=== PATIENT | male | born 1965 | race Caucasian/White ===

== ENCOUNTER 2017-10-12 21:01 | Emergency (ER) | payer MEDICARE, OTHER ==
[2017-10-12 21:07] VITALS: RESP 18
--- NOTE | 2017-10-12 21:40 | ED ---
Anxiety HPI - General Chief Complaint: Anxiety Stated Complaint: psych eval Time Seen by Provider: 10/12/17 21:20 Source: patient, RN notes reviewed Mode of arrival: ambulatory - History of Present Illness Initial Comments: This is a 52-year-old male who presents to the emergency department with request for mental evaluation. Patient states that he is prescribed Klonopin by Dr. Burleson. He states that he has been out since October 04 and does not follow up with Dr. Burleson until October 19 He states that "things are coming at me too fast. " He states he is experiencing a lot of stress in his life and needs something for anxiety. He requests to have a mental health evaluation. Patient denies any recent illnesses or infections. Denies fevers or chills, chest pain or shortness of breath, abdominal pain, nausea or vomiting. He does state that he is a current, every day smoker. Denies alcohol or illicit drug use. Denies auditory or visual hallucinations. - Related Data Home Medications: Home Medications Medication Instructions Recorded Confirmed OLANZapine [ZyPREXA] 15 mg PO DAILY 10/28/15 10/12/17 Butalb/Asprin/Caff 50-325-40Mg 1 cap PO DAILY PRN 10/12/17 10/12/17 [Fiorinal 50-325-40 MG] Zolpidem Tartrate [Ambien] 10 mg PO HS PRN 10/12/17 10/12/17 clonazePAM [KlonoPIN] 0.5 mg PO DAILY PRN 10/12/17 10/12/17 Allergies/Adverse Reactions: Allergies Allergy/AdvReac Type Severity Reaction Status Date / Time No Known Allergies Allergy Verified 10/12/17 21:24 Review of Systems ROS Statement: Those systems with pertinent positive or pertinent negative responses have been documented in the HPI. ROS Other: All systems not noted in ROS Statement are negative. Past Medical History Past Medical History: No Reported History Additional Past Medical History / Comment(s): Hernia History of Any Multi-Drug Resistant Organisms: None Reported Past Surgical History: No Surgical Hx Reported Past Psychological History: Anxiety, Bipolar, Schizoaffective Disorder Smoking Status: Current every day smoker Past Alcohol Use History: Rare Past Drug Use History: None Reported General Exam - General Exam Comments Initial Comments: General: Awake and alert, well-developed; in no apparent distress. HEENT: Head atraumatic, normocephalic. Pupils are equal, round and reactive to light. Extraocular movements intact. Oropharynx moist without erythema or exudate. Neck: Supple. Normal ROM. Cardiovascular: Regular rate and rhythm. No murmurs, rubs or gallops. Chest symmetrical. Respiratory: Lungs clear to auscultation bilaterally. No wheezes, rales or rhonchi. Normal respiratory effort with no use of accessory muscles. Abdomen: Soft, non-tender, non-distended. No rigidity, rebound or guarding. Normal bowel sounds in all 4 quadrants. Musculoskeletal: Normal ROM, no tenderness bilateral upper and lower extremities. Ambulating normally. Skin: Calvin, warm and dry without rashes or lesions. Neurological: Alert and oriented x3. CN II-XII grossly intact. Speech is fluent and answers are appropriate. No focal neuro deficits. Psychiatric: Cooperative and talkative. Does appear mildly anxious. Limitations: no limitations Course Vital Signs 10/12/17 21:04 Temperature 98.4 F Pulse Rate 81 Respiratory 18 Rate Blood Pressure 144/96 O2 Sat by Pulse 96 Oximetry Medical Decision Making - Medical Decision Making This is a 52-year-old male who presents to the emergency department with chief complaint of anxiety and request for mental evaluation. Patient states that he ran out of his Klonopin and is unable to follow-up with his primary care provider until October 19. Patient was evaluated by EPS who recommended discharge home. Vital signs have been stable and patient is in no acute distress. He will be discharged home at this time. All questions answered. Disposition Clinical Impression: Anxiety Disposition: HOME SELF-CARE Condition: Good Instructions: Generalized Anxiety Disorder (ED) Additional Instructions: Please follow up with primary care provider within 1-2 days. Return to emergency department if symptoms should worsen or any concerns arise. Is patient prescribed a controlled substance at d/c from ED?: No Referrals: Lisette Burleson MD [Primary Care Provider] - 1-2 days Time of Disposition: 23:31
[2017-10-12] MEDS ORDERED: ACETAMINOPHEN TAB 500 MG TAB PO STA (22:19)
[2017-10-12] MEDS ORDERED: LORazepam 1 MG TAB PO STA (22:49)
[2017-10-12] MEDS ORDERED: BUTALB/APAP/CAFF 50-325-40MG TAB PO STA (23:27)
[2017-10-12 23:45] VITALS: BP 128/82; PULSE 82; TEMP 98
== END 2017-10-12 23:45 | disposition home or self-care (01) ==
LOC: EC 21:01
DX: F41.9 Anxiety disorder, unspecified (principal); F25.9 Schizoaffective disorder, unspecified; F31.9 Bipolar disorder, unspecified; F17.200 Nicotine dependence, unspecified, uncomplicated; Z79.899 Other long term (current) drug therapy
CPT/HCPCS: 82075; 99283

== ENCOUNTER 2018-01-06 14:23 | Emergency (ER) | payer MEDICARE ==
[2018-01-06 14:37] VITALS: BP 111/74; PULSE 100; RESP 18; TEMP 97.5
[2018-01-06] MEDS ORDERED: HYDROcodone/APAP 5-325MG 1 EACH TAB PO STA (14:49)
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
--- NOTE | 2018-01-06 15:13 | XR ---
EXAMINATION TYPE: XR foot complete LT DATE OF EXAM: 01/06/2018 CLINICAL HISTORY: pain TECHNIQUE: Frontal, lateral and oblique images of the left foot are obtained. COMPARISON: None. FINDINGS: There is no acute fracture/dislocation evident. The joint spaces appear within normal martinez its. The overlying soft tissue appears unremarkable. IMPRESSION: There is no acute fracture or dislocation. ICD 10 NO FRACTURE, INITIAL EVALUATION
== END 2018-01-06 15:45 | disposition home or self-care (01) ==
LOC: EC 14:23
DX: S93.602A Unspecified sprain of left foot, initial encounter (principal); F31.9 Bipolar disorder, unspecified; F17.200 Nicotine dependence, unspecified, uncomplicated; Z79.899 Other long term (current) drug therapy; X50.9XXA Other and unspecified overexertion or strenuous movements or postures, initial encounter; Y93.55 Activity, bike riding; Y93.89 Activity, other specified; Y92.009 Unspecified place in unspecified non-institutional (private) residence as the place of occurrence of the external cause
CPT/HCPCS: 99283

== ENCOUNTER 2018-04-04 13:13 | Emergency (ER) | payer MEDICARE ==
[2018-04-04 13:36] VITALS: BP 126/83; PULSE 82; RESP 18; TEMP 98.1
--- NOTE | 2018-04-04 14:05 | XR ---
EXAMINATION TYPE: XR foot complete LT DATE OF EXAM: 04/04/2018 CLINICAL HISTORY: Injury with pain and swelling worse over first toe TECHNIQUE: Frontal, lateral, and oblique images of the left foot are obtained. COMPARISON: Left foot x-ray January 06, 2018 FINDINGS: There is no acute fracture/dislocation evident in the left foot. Mild narrowing first meta tarsophalangeal joint remains present. Mild diffuse subcutaneous edema along plantar surface is again seen. Accessory ossicles posterior to talus and near the cuboid bone are both redemonstrated. IMPRESSION: There is no acute fracture or dislocation in the left foot. No significant change from p rior.
[2018-04-04] MEDS ORDERED: KETOROLAC 60 MG/2 ML VIAL IM STA (14:08)
--- NOTE | 2018-04-04 14:22 | ED ---
General Adult HPI - General Chief complaint: Extremity Injury, Lower Stated complaint: Toe pain Time Seen by Provider: 04/04/18 13:40 Source: patient, police, RN notes reviewed Mode of arrival: ambulatory - History of Present Illness Initial comments: Patient 52-year-old male presented to the emergency room today with a chief complaint of left toe pain. Patient does admit that he initially injured her back in December was seen here in the emergency room. Patient states he still been experiencing some discomfort. He states he was doing well for a while but has increased over the last few days. Denies any new injury or trauma. He states he would like to have an x-ray obtained. He states that pain is the same as it was back in December. Denies any other complaints or symptoms at this time. Patient denies any recent fever, chills, shortness of breath, chest pain, back pain, abdominal pain, nausea or vomiting, numbness or tingling, headaches or visual changes, or any other complaints. - Related Data Home Medications Medication Instructions Recorded Confirmed OLANZapine [ZyPREXA] 15 mg PO DAILY 10/28/15 10/12/17 Butalb/Asprin/Caff 50-325-40Mg 1 cap PO DAILY PRN 10/12/17 10/12/17 [Fiorinal 50-325-40 MG] Zolpidem Tartrate [Ambien] 10 mg PO HS PRN 10/12/17 10/12/17 clonazePAM [KlonoPIN] 0.5 mg PO DAILY PRN 10/12/17 10/12/17 Previous Rx's Medication Instructions Recorded Ibuprofen [Motrin] 600 mg PO Q6HR PRN #40 day 04/04/18 Allergies Allergy/AdvReac Type Severity Reaction Status Date / Time No Known Allergies Allergy Verified 01/06/18 14:36 Review of Systems ROS Statement: Those systems with pertinent positive or pertinent negative responses have been documented in the HPI. ROS Other: All systems not noted in ROS Statement are negative. Past Medical History Past Medical History: No Reported History Additional Past Medical History / Comment(s): Schizoaffective d/o- on zyprexa .Hernia History of Any Multi-Drug Resistant Organisms: None Reported Past Surgical History: Hernia Repair Past Psychological History: Anxiety, Bipolar, Schizoaffective Disorder Smoking Status: Current every day smoker Past Alcohol Use History: Rare Past Drug Use History: None Reported General Exam - General Exam Comments Initial Comments: General: The patient is awake and alert, in no distress, and does not appear acutely ill. Neck: The neck is supple, there is no tenderness or JVD. Cardiovascular: There is a regular rate and rhythm. No murmur, rub or gallop is appreciated. Respiratory: Lungs are clear to auscultation, respirations are non-labored, breath sounds are equal. No wheezes, stridor, rales, or rhonchi. Musculoskeletal: Patient has normal appearance of the left foot no obvious deformity. Shows good range of motion. Does have tenderness over the first MTP joint. Cap refill less than 2 seconds. Pedal pulse 2+. Strength 5/5. Neurological: A&O x 3. CN II-XII intact, There are no obvious motor or sensory deficits. Coordination appears grossly intact. Speech is normal. Skin: Skin is warm and dry and no rashes or lesions are noted. Psychiatric: Normal mood and affect. Course Vital Signs 04/04/18 13:33 Temperature 98.1 F Pulse Rate 82 Respiratory 18 Rate Blood Pressure 126/83 O2 Sat by Pulse 97 Oximetry Medical Decision Making - Medical Decision Making X-ray reviewed negative for any acute fracture dislocation per patient states is the same pain that he's been expressing some December of this year when he injured it initially. He is advised that he should use anti-inflammatories for pain. She requested something stronger. Advised him that we would only give him anti-inflammatories. Advised that he should follow up with orthopedics if symptoms persist. Disposition Clinical Impression: Toe pain Disposition: HOME SELF-CARE Condition: Good Instructions: Foot Sprain (ED) Additional Instructions: Please use medication as discussed. Please follow-up with orthopedic/family doctor in the next 2 days of symptoms have not improved. Please return to emergency room if the symptoms increase or worsen or for any other concerns. Prescriptions: Ibuprofen [Motrin] 600 mg PO Q6HR PRN #40 day PRN Reason: Pain Is patient prescribed a controlled substance at d/c from ED?: No Referrals: [facility] [Primary Care Provider] - 1-2 days Jarvis Rivera PAC [PHYSICIAN MACHINE [employer]] - 1-2 days Time of Disposition: 14:21
== END 2018-04-04 14:26 | disposition home or self-care (01) ==
LOC: EC 13:13
DX: M79.675 Pain in left toe(s) (principal); F25.9 Schizoaffective disorder, unspecified; F31.9 Bipolar disorder, unspecified; F17.200 Nicotine dependence, unspecified, uncomplicated; Z79.899 Other long term (current) drug therapy
CPT/HCPCS: 73630; 99283; 96372; J1885

== ENCOUNTER 2018-10-11 11:18 | Emergency (ER) | payer MEDICARE, OTHER ==
[2018-10-11 11:38] VITALS: BP 118/81; PULSE 79; RESP 18; TEMP 98.5
--- NOTE | 2018-10-11 12:32 | ED ---
Extremity Problem HPI - General Chief complaint: Extremity Problem,Nontraumatic Stated complaint: rt foot injury Time Seen by Provider: 10/11/18 11:42 Source: patient, RN notes reviewed Mode of arrival: wheelchair Limitations: no limitations - History of Present Illness Initial comments: 53-year-old male presents emergency Department with chief complaint of right foot first digit pain. Patient states started hurting a few days ago felt that he may does pull this to wrong or something. Patient states that it is slightly red and painful to any touch. Patient states it's worse when he ambulates. Patient denies fever, chills, calf pain, history gout, paresthesias - Related Data Home Medications Medication Instructions Recorded Confirmed OLANZapine [ZyPREXA] 15 mg PO HS 10/28/15 10/11/18 Niacin [Niacin ER] 1,000 mg PO HS 10/11/18 10/11/18 Ranitidine HCl [Zantac] 150 mg PO BID 10/11/18 10/11/18 Triamterene/Hydrochlorothiazid 1 cap PO DAILY 10/11/18 10/11/18 [Dyazide 37.5-25 Capsule] Allergies Allergy/AdvReac Type Severity Reaction Status Date / Time No Known Allergies Allergy Verified 10/11/18 12:28 Review of Systems ROS Statement: Those systems with pertinent positive or pertinent negative responses have been documented in the HPI. ROS Other: All systems not noted in ROS Statement are negative. Past Medical History Past Medical History: No Reported History Additional Past Medical History / Comment(s): Schizoaffective d/o- on zyprexa .Hernia History of Any Multi-Drug Resistant Organisms: None Reported Past Surgical History: Hernia Repair Past Psychological History: Anxiety, Bipolar, Schizoaffective Disorder Smoking Status: Current every day smoker Past Alcohol Use History: Rare Past Drug Use History: None Reported General Exam Limitations: no limitations General appearance: alert, in no apparent distress Head exam: Present: atraumatic, normocephalic, normal inspection Respiratory exam: Present: normal lung sounds bilaterally. Absent: respiratory distress, wheezes, rales, rhonchi, stridor Cardiovascular Exam: Present: regular rate, normal rhythm, normal heart sounds. Absent: systolic murmur, diastolic murmur, rubs, gallop, clicks Extremities exam: Present: other (Right foot first MTP there is moderate swelling, mild erythema and severe tenderness with palpation, capillary refill less than 2 seconds, remaining foot nontender no tenderness of the ankle tenderness ulcers are equal) Skin exam: Present: warm, dry, intact, normal color. Absent: rash Course Vital Signs 10/11/18 11:35 Temperature 98.5 F Pulse Rate 79 Respiratory 18 Rate Blood Pressure 118/81 O2 Sat by Pulse 96 Oximetry Medical Decision Making - Medical Decision Making 53-year-old male presented for right foot pain this was initially felt to be go. X-ray was obtained, waiting for radiology results. Patient became upset and left without results at this time. Disposition Clinical Impression: Gout Disposition: Left Against Medical Advice Referrals: [facility] [Primary Care Provider] - 1-2 days
[2018-10-11] MEDS ORDERED: KETOROLAC 60 MG/2 ML VIAL IM STA (12:55)
[2018-10-11] MEDS ORDERED: IBUPROFEN 600 MG TAB PO STA (12:57)
--- NOTE | 2018-10-11 13:42 | XR ---
EXAMINATION TYPE: XR foot complete RT DATE OF EXAM: 10/11/2018 CLINICAL HISTORY: Right foot pain TECHNIQUE: Frontal, lateral, and oblique images of the right foot are obtained. COMPARISON: None FINDINGS: There is no acute fracture/dislocation evident in the right foot. The joint spaces in the right foot appear within normal limits. A solitary erosion is seen of the first distal metatarsal o n the oblique view only. Blurring of the fat at the medial aspect of the first metatarsal phalangeal joint is also seen from mild soft tissue swelling. The osseous mineralization is within normal limits . IMPRESSION: Solitary erosion at the first distal metatarsal on the oblique view is in keeping with th is patient's question history of gout. Erosive osteoarthritis or CPPD are less likely.
== END 2018-10-11 13:40 | disposition left against medical advice (07) ==
LOC: EC 11:18
DX: M10.071 Idiopathic gout, right ankle and foot (principal); F25.9 Schizoaffective disorder, unspecified; F31.9 Bipolar disorder, unspecified; F41.9 Anxiety disorder, unspecified; F17.200 Nicotine dependence, unspecified, uncomplicated; Z79.899 Other long term (current) drug therapy; Z53.29 Procedure and treatment not carried out because of patient's decision for other reasons
CPT/HCPCS: 99283

== ENCOUNTER 2020-02-23 13:39 | Emergency (ER) | payer MEDICARE, OTHER ==
[2020-02-23 13:43] VITALS: BP 131/93; PULSE 81; RESP 18; TEMP 97.9
[2020-02-23] MEDS ORDERED: LORazepam 1 MG TAB PO STA (14:06)
--- NOTE | 2020-02-23 14:09 | ED ---
General Adult HPI - General Chief complaint: Anxiety Stated complaint: panic attack Time Seen by Provider: 02/23/20 13:45 Source: patient, RN notes reviewed, old records reviewed Mode of arrival: ambulatory Limitations: no limitations - History of Present Illness Initial comments: This is a 54-year-old male who presents emergency Department complaining that he is anxious. Patient states the COVID 19 and the election have both medial very anxious. Patient states she's also had a younger woman who is 41 years old moving with him and he states that that has also created some anxiety because living with someone else's very difficult. Patient states she's not suicidal homicidal he is just looking for something to relax him this evening. Patient s tates a follow-up with the psychiatrist for any drugs for the long-term for his anxiety. Patient denies any chest pain difficulty breathing shortness of breath - Related Data Home Medications Medication Instructions Recorded Confirmed OLANZapine [ZyPREXA] 15 mg PO HS 10/28/15 10/11/18 Niacin [Niacin ER] 1,000 mg PO HS 10/11/18 10/11/18 Ranitidine HCl [Zantac] 150 mg PO BID 10/11/18 10/11/18 Triamterene/Hydrochlorothiazid 1 cap PO DAILY 10/11/18 10/11/18 [Dyazide 37.5-25 Capsule] Allergies Allergy/AdvReac Type Severity Reaction Status Date / Time No Known Allergies Allergy Verified 02/23/20 13:43 Review of Systems ROS Statement: Those systems with pertinent positive or pertinent negative responses have been documented in the HPI. ROS Other: All systems not noted in ROS Statement are negative. Past Medical History Past Medical History: No Reported History Additional Past Medical History / Comment(s): Schizoaffective d/o- on zyprexa .Hernia History of Any Multi-Drug Resistant Organisms: None Reported Past Surgical History: Hernia Repair Past Psychological History: Anxiety, Bipolar, Schizoaffective Disorder Smoking Status: Current every day smoker Past Alcohol Use History: Rare Past Drug Use History: None Reported General Exam - General Exam Comments Initial Comments: GENERAL: Patient is well-developed and well-nourished. Patient is nontoxic and well- hydrated and is in no acute distress. ENT: Neck is soft and supple. No significant lymphadenopathy is noted. Oropharynx is clear. Moist mucous membranes. Neck has full range of motion without eliciting any pain. EYES: The sclera were anicteric and conjunctiva were pink and moist. Extraocular movements were intact and pupils were equal round and reactive to light. Eyelids were unremarkable. PULMONARY: Unlabored respirations. Good breath sounds bilaterally. No audible rales rhonchi or wheezing was noted. CARDIOVASCULAR: There is a regular rate and rhythm without any murmurs gallops or rubs. ABDOMEN: Soft and nontender with normal bowel sounds. SKIN: Skin is clear with no lesions or rashes and otherwise unremarkable. NEUROLOGIC: Patient is alert and oriented x3. Cranial nerves II through XII are grossly intact. Motor and sensory are also intact. Normal speech, volume and content. Symmetrical smile. MUSCULOSKELETAL: Normal extremities with adequate strength and full range of motion. No lower extremity swelling or edema. No calf tenderness. LYMPHATICS: No significant lymphadenopathy is noted PSYCHIATRIC: Patient states she's very anxious and worried about the election and COVID 19 Limitations: no limitations Course Vital Signs 02/23/20 13:41 Temperature 97.9 F Pulse Rate 81 Respiratory 18 Rate Blood Pressure 131/93 O2 Sat by Pulse 99 Oximetry Disposition Clinical Impression: Acute anxiety Disposition: HOME SELF-CARE Instructions (If sedation given, give patient instructions): Generalized Anxiety Disorder (ED) Additional Instructions: Patient should follow-up with his psychiatrist to treat the anxiety long-term Referrals: [facility] [Primary Care Provider] - 1-2 days Time of Disposition: 14:09
== END 2020-02-23 14:22 | disposition home or self-care (01) ==
LOC: EC 13:39
DX: F41.9 Anxiety disorder, unspecified (principal); F31.9 Bipolar disorder, unspecified; F25.9 Schizoaffective disorder, unspecified; F17.200 Nicotine dependence, unspecified, uncomplicated; Z79.899 Other long term (current) drug therapy
CPT/HCPCS: 99283

== ENCOUNTER 2020-04-12 13:28 | Emergency (ER) | payer MEDICARE, OTHER ==
[2020-04-12 13:42] VITALS: BP 113/77; PULSE 77; RESP 20; TEMP 97.8
[2020-04-12] MEDS ORDERED: clonazePAM 1 MG TAB PO STA ×2 (13:56→13:59)
--- NOTE | 2020-04-12 13:59 | ED ---
General Adult HPI - General Chief complaint: Anxiety Stated complaint: Panic Attack Time Seen by Provider: 04/12/20 13:46 Source: patient, RN notes reviewed Mode of arrival: ambulatory Limitations: no limitations - History of Present Illness Initial comments: Patient is a pleasant 54-year-old male presenting to the emergency Department with complaints of anxiety. Patient states he does have history of similar symptoms previously and usually gets this every month or 2. Patient states he is not currently on any medication for this. Patient previously was on Klonopin as well as other medications but states Klonopin has worked the best. Patient just feels anxious and crawling out of his skin. Patient denies any suicidal or homicidal thoughts. - Related Data Home Medications Medication Instructions Recorded Confirmed OLANZapine [ZyPREXA] 15 mg PO HS 10/28/15 10/11/18 Niacin [Niacin ER] 1,000 mg PO HS 10/11/18 10/11/18 Ranitidine HCl [Zantac] 150 mg PO BID 10/11/18 10/11/18 Triamterene/Hydrochlorothiazid 1 cap PO DAILY 10/11/18 10/11/18 [Dyazide 37.5-25 Capsule] Allergies Allergy/AdvReac Type Severity Reaction Status Date / Time No Known Allergies Allergy Verified 04/12/20 13:42 Review of Systems ROS Statement: Those systems with pertinent positive or pertinent negative responses have been documented in the HPI. ROS Other: All systems not noted in ROS Statement are negative. Constitutional: Denies: fever Eyes: Denies: eye pain ENT: Denies: ear pain Respiratory: Denies: cough Cardiovascular: Denies: chest pain Endocrine: Denies: fatigue Gastrointestinal: Denies: abdominal pain Genitourinary: Denies: dysuria Musculoskeletal: Denies: back pain Skin: Denies: rash Neurological: Denies: headache Psychiatric: Reports: anxiety. Denies: depression, homicidal thoughts, suicidal thoughts Past Medical History Past Medical History: No Reported History Additional Past Medical History / Comment(s): Schizoaffective d/o- on zyprexa .Hernia History of Any Multi-Drug Resistant Organisms: None Reported Past Surgical History: Hernia Repair Past Psychological History: Anxiety, Bipolar, Schizoaffective Disorder Smoking Status: Current every day smoker Past Alcohol Use History: Rare Past Drug Use History: None Reported General Exam Limitations: no limitations General appearance: alert, in no apparent distress Head exam: Present: normocephalic Eye exam: Present: normal appearance Neck exam: Present: normal inspection Respiratory exam: Present: normal lung sounds bilaterally Cardiovascular Exam: Present: regular rate, normal rhythm GI/Abdominal exam: Present: soft. Absent: tenderness Neurological exam: Present: alert Psychiatric exam: Present: anxious (Patient does appear mildly anxious) Skin exam: Present: normal color. Absent: rash Course Vital Signs 04/12/20 13:40 Temperature 97.8 F Pulse Rate 77 Respiratory 20 Rate Blood Pressure 113/77 O2 Sat by Pulse 98 Oximetry Disposition Clinical Impression: Acute anxiety Disposition: HOME SELF-CARE Condition: Stable Instructions (If sedation given, give patient instructions): Generalized Anxiety Disorder (ED) Additional Instructions: Please follow-up to primary care physician in the next couple of days for recheck. Return for thoughts of harming yourself or others, worsening symptoms or any other concerns. Second pill has been given 2 to take if you need the next day or 2 prior to follow-up. Is patient prescribed a controlled substance at d/c from ED?: No Referrals: [facility] [Primary Care Provider] - 1-2 days Time of Disposition: 13:59
== END 2020-04-12 14:09 | disposition home or self-care (01) ==
LOC: EC 13:28
DX: F41.9 Anxiety disorder, unspecified (principal); F31.9 Bipolar disorder, unspecified; F25.9 Schizoaffective disorder, unspecified; Z79.899 Other long term (current) drug therapy; F17.200 Nicotine dependence, unspecified, uncomplicated
CPT/HCPCS: 99283

== ENCOUNTER 2020-05-07 16:25 | Emergency (ER) | payer MEDICARE, OTHER ==
[2020-05-07 16:33] VITALS: BP 134/90; PULSE 80; RESP 18; TEMP 97.7
[2020-05-07] MEDS ORDERED: clonazePAM 0.5 MG TAB PO STA (16:49)
--- NOTE | 2020-05-07 16:50 | ED ---
General Adult HPI - General Chief complaint: Anxiety Stated complaint: Panic Attack Time Seen by Provider: 05/07/20 16:38 Source: patient Mode of arrival: ambulatory Limitations: no limitations - History of Present Illness Initial comments: Dictation was produced using [employer] dictation software. please excuse any grammatical, word or spelling errors. This patient was cared for during a federal and state declared state of emergency secondary to Covid 19 Chief Complaint: 54-year-old male past medical history of psychiatric disease pr esents with anxiety attack. History of Present Illness: 54-year-old male he states he has multiple psychiatric issues. Patient states yesterday he had a panic attack. He states that his thoughts were racing. He does have multiple history of psychiatric disease. Patient states he has a follow-up with his psychiatrist recently. Denies any suicidal or homicidal ideation. Denies any visual or auditory hallucinations. Patient states he is waiting to go to a new psychiatrist. The ROS documented in this emergency department record has been reviewed and confirmed by me. Those systems with pertinent positive or negative responses have been documented in the HPI. All other systems are other negative and/or noncontributory. PHYSICAL EXAM: General Impression: Alert and oriented x3, not in acute distress HEENT: Normocephalic atraumatic, extra-ocular movements intact, pupils equal and reactive to light bilaterally, mucous membranes moist. Cardiovascular: Heart regular rate and rhythm Chest: Able to complete full sentences, no retractions, no tachypnea Abdomen: abdomen soft, non-tender, non-distended, no organomegaly Musculoskeletal: Pulses present and equal in all extremities, no peripheral edema Motor: no focal deficits noted Neurological: CN II-XII grossly intact, no focal motor or sensory deficits noted Skin: Intact with no visualized rashes Psych: Normal affect and mood ED course: 54-year-old now presents with clinical presentation systems with excited reaction. Vital signs upon arrival are within acceptable limits. Patient is well-appearing. He has no medical complaints. He is not psychotic. Clinically does not look very anxious. Patient's usual anxiety doses Klonopin 0.5 mg. Patient given 1 dose. Shortly advised follow-up with [facility] for outpatient management of anxiety. - Related Data Home Medications Medication Instructions Recorded Confirmed OLANZapine [ZyPREXA] 15 mg PO HS 10/28/15 10/11/18 Niacin [Niacin ER] 1,000 mg PO HS 10/11/18 10/11/18 Ranitidine HCl [Zantac] 150 mg PO BID 10/11/18 10/11/18 Triamterene/Hydrochlorothiazid 1 cap PO DAILY 10/11/18 10/11/18 [Dyazide 37.5-25 Capsule] Allergies Allergy/AdvReac Type Severity Reaction Status Date / Time No Known Allergies Allergy Verified 05/07/20 16:33 Review of Systems ROS Statement: Those systems with pertinent positive or pertinent negative responses have been documented in the HPI. ROS Other: All systems not noted in ROS Statement are negative. Past Medical History Past Medical History: No Reported History Additional Past Medical History / Comment(s): Schizoaffective d/o- on zyprexa .Hernia History of Any Multi-Drug Resistant Organisms: None Reported Past Surgical History: Hernia Repair Past Psychological History: Anxiety, Bipolar, Schizoaffective Disorder Smoking Status: Current every day smoker Past Alcohol Use History: Rare Past Drug Use History: None Reported General Exam Limitations: no limitations Course Vital Signs 05/07/20 16:30 Temperature 97.7 F Pulse Rate 80 Respiratory 18 Rate Blood Pressure 134/90 O2 Sat by Pulse 99 Oximetry Disposition Clinical Impression: Panic attack Disposition: HOME SELF-CARE Instructions (If sedation given, give patient instructions): Generalized Anxiety Disorder (ED) Is patient prescribed a controlled substance at d/c from ED?: No Referrals: [facility] [Primary Care Provider] - 1-2 days Time of Disposition: 16:50
== END 2020-05-07 17:01 | disposition home or self-care (01) ==
LOC: EC 16:25
DX: F41.0 Panic disorder [episodic paroxysmal anxiety] (principal); F17.200 Nicotine dependence, unspecified, uncomplicated; Z79.899 Other long term (current) drug therapy
CPT/HCPCS: 99283

== ENCOUNTER 2020-10-27 23:19 | Emergency (ER) | payer MEDICARE, OTHER ==
[2020-10-27 23:23] VITALS: BP 133/95; PULSE 98; RESP 18; TEMP 98.9
[2020-10-28] MEDS ORDERED: diazePAM 5 MG TAB PO STA (00:16)
--- NOTE | 2020-10-28 00:17 | ED ---
General Adult HPI - General Chief complaint: Anxiety Stated complaint: Anxiety Time Seen by Provider: 10/27/20 23:35 Source: patient Mode of arrival: ambulatory Limitations: no limitations - History of Present Illness Initial comments: 55-year-old male patient presents for evaluation of increased anxiety. States his cat recently has been causing panic attacks. Patient states that he does have underlying history of mental illness including schizophrenia and bipolar. States he does take Zyprexa daily. Denies any current anxiety medications. He is requesting prescription for anxiety medication a take home with him. States his anxiety includes racing thoughts and inability to sleep. States he does have some throat tightness but this is common with his anxiety. Denies any chest pain or shortness of breath. Denies any suicidal or homicidal ideation. - Related Data Home Medications Medication Instructions Recorded Confirmed OLANZapine [ZyPREXA] 15 mg PO HS 10/28/15 10/11/18 Niacin [Niacin ER] 1,000 mg PO HS 10/11/18 10/11/18 Ranitidine HCl [Zantac] 150 mg PO BID 10/11/18 10/11/18 Triamterene/Hydrochlorothiazid 1 cap PO DAILY 10/11/18 10/11/18 [Dyazide 37.5-25 Capsule] Previous Rx's Medication Instructions Recorded hydrOXYzine pamoate [Vistaril] 25 mg PO TID PRN #9 cap 10/28/20 Allergies Allergy/AdvReac Type Severity Reaction Status Date / Time No Known Allergies Allergy Verified 10/27/20 23:22 Review of Systems ROS Statement: Those systems with pertinent positive or pertinent negative responses have been documented in the HPI. ROS Other: All systems not noted in ROS Statement are negative. Past Medical History Past Medical History: No Reported History Additional Past Medical History / Comment(s): Schizoaffective d/o- on zyprexa .Hernia History of Any Multi-Drug Resistant Organisms: None Reported Past Surgical History: Hernia Repair Past Psychological History: Anxiety, Bipolar, Schizoaffective Disorder Smoking Status: Current every day smoker Past Alcohol Use History: Rare Past Drug Use History: None Reported General Exam Limitations: no limitations General appearance: alert, in no apparent distress, other (Physical well- developed, well-nourished adult male patient in no acute distress. Vital signs upon presentation are temperature 98.9F, pulse 98, respirations 18, blood pressure 133/95, pulse ox 95% on room air.) Eye exam: Present: normal appearance, PERRL, EOMI. Absent: scleral icterus, conjunctival injection, periorbital swelling Respiratory exam: Present: normal lung sounds bilaterally. Absent: respiratory distress, wheezes, rales, rhonchi, stridor Cardiovascular Exam: Present: regular rate, normal rhythm, normal heart sounds. Absent: systolic murmur, diastolic murmur, rubs, gallop, clicks Neurological exam: Present: alert, oriented X3, CN II-XII intact Psychiatric exam: Present: anxious. Absent: homicidal ideation, suicidal ideation Skin exam: Present: warm, dry, intact, normal color. Absent: rash Course Vital Signs 10/27/20 23:20 Temperature 98.9 F Pulse Rate 98 Respiratory 18 Rate Blood Pressure 133/95 O2 Sat by Pulse 95 Oximetry Medical Decision Making - Medical Decision Making 55-year-old male patient presents for evaluation of increased anxiety and panic attacks. He has not suicidal nor homicidal. Physical examination is unremarkable. Vital signs are unremarkable. Patient was requesting prescription for Klonopin or Valium. He was given a single dose of Valium here and given a prescription for Vistaril. Instructed to follow-up with his primary care physician for recheck in 1-2 days. Return parameters discussed in detail. He verbalizes understanding and agrees with this plan. Case discussed with my attending Dr. Huynh. Disposition Clinical Impression: Anxiety Disposition: HOME SELF-CARE Condition: Good Instructions (If sedation given, give patient instructions): Generalized Anxiety Disorder (ED) Additional Instructions: Follow up with your primary care physician or your psychiatrist for prescriptions for controlled substances. Return for any new, worsening, or conc erning symptoms. Prescriptions: hydrOXYzine pamoate [Vistaril] 25 mg PO TID PRN #9 cap PRN Reason: Anxiety Is patient prescribed a controlled substance at d/c from ED?: No Referrals: [facility] [Primary Care Provider] - 1-2 days Time of Disposition: 00:17
== END 2020-10-28 00:34 | disposition home or self-care (01) ==
LOC: EC 23:19
DX: F41.9 Anxiety disorder, unspecified (principal); F17.200 Nicotine dependence, unspecified, uncomplicated
CPT/HCPCS: 99283

== ENCOUNTER 2020-11-12 16:41 | Emergency (ER) | payer MEDICARE, OTHER ==
[2020-11-12] MEDS ORDERED: DIAZEPAM 5 MG/ML 2 ML INJ IM STA (17:45)
--- NOTE | 2020-11-12 17:58 | ED ---
Anxiety HPI - General Chief Complaint: Anxiety Stated Complaint: mental health Time Seen by Provider: 11/12/20 17:24 Source: patient, RN notes reviewed Mode of arrival: ambulatory - History of Present Illness Initial Comments: Patient is a 55-year-old male presents emergency room complaining of anxiety. He notes that he felt overwhelmed today so he can emergency room to get so mething to help take the edge off. He notes that he does take all at home medications as prescribed for schizophrenia. He was otherwise well-appearing 55-year-old male in no apparent distress or pain. He denied any chest pain shortness breath headache nausea vomiting diarrhea constipation fever fatigue chills. - Related Data Home Medications: Home Medications Medication Instructions Recorded Confirmed OLANZapine [ZyPREXA] 15 mg PO HS 10/28/15 10/11/18 Niacin [Niacin ER] 1,000 mg PO HS 10/11/18 10/11/18 Ranitidine HCl [Zantac] 150 mg PO BID 10/11/18 10/11/18 Triamterene/Hydrochlorothiazid 1 cap PO DAILY 10/11/18 10/11/18 [Dyazide 37.5-25 Capsule] Previous Rx's Medication Instructions Recorded hydrOXYzine pamoate [Vistaril] 25 mg PO TID PRN #9 cap 10/28/20 Allergies/Adverse Reactions: Allergies Allergy/AdvReac Type Severity Reaction Status Date / Time No Known Allergies Allergy Verified 11/12/20 17:09 Review of Systems ROS Statement: Those systems with pertinent positive or pertinent negative responses have been documented in the HPI. ROS Other: All systems not noted in ROS Statement are negative. Past Medical History Past Medical History: No Reported History Additional Past Medical History / Comment(s): Schizoaffective d/o- on zyprexa .Hernia History of Any Multi-Drug Resistant Organisms: None Reported Past Surgical History: Hernia Repair Past Psychological History: Anxiety, Bipolar, Schizoaffective Disorder Smoking Status: Current every day smoker Past Alcohol Use History: Rare Past Drug Use History: None Reported General Exam Limitations: no limitations General appearance: alert, in no apparent distress Head exam: Present: atraumatic, normocephalic, normal inspection Eye exam: Present: normal appearance, PERRL, EOMI. Absent: scleral icterus, conjunctival injection, periorbital swelling Neck exam: Present: normal inspection Respiratory exam: Present: normal lung sounds bilaterally. Absent: respiratory distress, wheezes, rales, rhonchi, stridor Cardiovascular Exam: Present: regular rate, normal rhythm, normal heart sounds. Absent: systolic murmur, diastolic murmur, rubs, gallop, clicks GI/Abdominal exam: Present: soft, normal bowel sounds. Absent: distended, tenderness, guarding, rebound, rigid Extremities exam: Present: normal inspection, full ROM, normal capillary refill. Absent: tenderness, pedal edema, joint swelling, calf tenderness Neurological exam: Present: alert, oriented X3 Psychiatric exam: Present: normal affect, normal mood Skin exam: Present: warm, dry, intact, normal color. Absent: rash Course Vital Signs 11/12/20 17:10 Temperature 97.8 F Pulse Rate 85 Respiratory 16 Rate Blood Pressure 130/86 O2 Sat by Pulse 99 Oximetry Medical Decision Making - Medical Decision Making 55-year-old male complaining of anxiety and feeling overwhelmed today. 5 mg of Valium ordered. Case discussed with Dr. Morales, patient discharge home. Disposition Clinical Impression: Acute anxiety Disposition: HOME SELF-CARE Condition: Stable Instructions (If sedation given, give patient instructions): Generalized Anxiety Disorder (ED) Additional Instructions: Please return to the Emergency Department if symptoms worsen or any other concerns. Follow-up with primary care next 1-2 days. Continue take medications as prescribed. Is patient prescribed a controlled substance at d/c from ED?: No Referrals: [facility] [Primary Care Provider] - 1-2 days Time of Disposition: 17:58
[2020-11-12] MEDS ORDERED: diazePAM 5 MG TAB PO STA (18:03)
[2020-11-12 18:08] VITALS: BP 137/97; PULSE 58; RESP 18; TEMP 97.7
== END 2020-11-12 18:07 | disposition home or self-care (01) ==
LOC: EC 16:41
DX: F41.9 Anxiety disorder, unspecified (principal); F17.200 Nicotine dependence, unspecified, uncomplicated
CPT/HCPCS: 99283

== ENCOUNTER 2020-12-29 16:42 | Emergency (ER) | payer MEDICARE, OTHER ==
[2020-12-29 16:50] VITALS: TEMP 97.8
[2020-12-29] MEDS ORDERED: DIAZEPAM 5 MG/ML 2 ML INJ IM STA (16:55)
--- NOTE | 2020-12-29 17:00 | ED ---
Anxiety HPI - General Chief Complaint: Anxiety Stated Complaint: anxiety attack Time Seen by Provider: 12/29/20 16:50 Source: patient, RN notes reviewed, old records reviewed Mode of arrival: ambulatory - History of Present Illness Initial Comments: This is a well-appearing 55-year-old white gentleman that comes to the emergency room with complaints of having a panic attack. He has a history of the same. He states that he takes Zyprexa for his bipolar and schizophrenia. He states that he normally gets Valium when he comes to the emergency room and that helps resolve his symptoms. He states that the trigger for his anxiety was last night when he was talking to his therapist. He states he did make some progress with therapy but thinking about it throughout the day was causing him to have a panic attack. He denies any nausea vomiting chest pain shortness of breath. He denies any suicidal or homicidal ideations. Complaint: anxiety -: days(s) (1) Place: home Previous History of Same: Yes Severity: moderate Quality: constant Provoking factors: emotional stress Improves With: nothing Worsens With: thinking about event - Related Data Home Medications: Home Medications Medication Instructions Recorded Confirmed OLANZapine [ZyPREXA] 15 mg PO HS 10/28/15 10/11/18 Niacin [Niacin ER] 1,000 mg PO HS 10/11/18 10/11/18 Ranitidine HCl [Zantac] 150 mg PO BID 10/11/18 10/11/18 Triamterene/Hydrochlorothiazid 1 cap PO DAILY 10/11/18 10/11/18 [Dyazide 37.5-25 Capsule] Previous Rx's Medication Instructions Recorded hydrOXYzine pamoate [Vistaril] 25 mg PO TID PRN #9 cap 10/28/20 Allergies/Adverse Reactions: Allergies Allergy/AdvReac Type Severity Reaction Status Date / Time No Known Allergies Allergy Verified 12/29/20 16:49 Review of Systems ROS Statement: Those systems with pertinent positive or pertinent negative responses have been documented in the HPI. ROS Other: All systems not noted in ROS Statement are negative. Past Medical History Past Medical History: No Reported History Additional Past Medical History / Comment(s): Schizoaffective d/o- on zyprexa .Hernia History of Any Multi-Drug Resistant Organisms: None Reported Past Surgical History: Hernia Repair Past Psychological History: Anxiety, Bipolar, Schizoaffective Disorder Smoking Status: Current every day smoker Past Alcohol Use History: Rare Past Drug Use History: None Reported General Exam Limitations: no limitations General appearance: alert, in no apparent distress Head exam: Present: atraumatic, normocephalic, normal inspection Eye exam: Present: normal appearance, PERRL, EOMI. Absent: scleral icterus, conjunctival injection, periorbital swelling ENT exam: Present: normal exam, normal oropharynx, mucous membranes moist Neck exam: Present: normal inspection, full ROM. Absent: tenderness, meningismus, lymphadenopathy Respiratory exam: Present: normal lung sounds bilaterally. Absent: respiratory distress, wheezes, rales, rhonchi, stridor Cardiovascular Exam: Present: regular rate, normal rhythm, normal heart sounds. Absent: systolic murmur, diastolic murmur, rubs, gallop, clicks GI/Abdominal exam: Present: soft, normal bowel sounds. Absent: distended, tenderness, guarding, rebound, rigid Neurological exam: Present: alert, oriented X3, CN II-XII intact, normal gait Psychiatric exam: Present: anxious. Absent: agitated, flat affect, homicidal ideation, suicidal ideation Skin exam: Present: warm, dry, intact, normal color. Absent: rash, cyanosis, diaphoretic, petechiae, pallor Course Vital Signs 12/29/20 16:47 Temperature 97.8 F Pulse Rate 89 Respiratory 20 Rate Blood Pressure 137/92 O2 Sat by Pulse 88 L Oximetry Medical Decision Making - Medical Decision Making Patient is well-appearing and does have follow-up with his primary care and therapist. He was directed to continue his home medications. He was given a dose of IM Valium here in the emergency room to help with his anxiety. He was requesting Valium prescription today. I did tell him to follow up with his primary care doctor for continuation of care and adjustments to his medications. He did direct him to continue his medications as previously prescribed. Disposition Clinical Impression: Acute anxiety Disposition: HOME SELF-CARE Instructions (If sedation given, give patient instructions): Generalized Anxiety Disorder (ED) Additional Instructions: Take medications as previously prescribed. Follow-up with your primary care doctor and your therapist for continuation of care. Is patient prescribed a controlled substance at d/c from ED?: No Referrals: None,Stated [Primary Care Provider] - 1-2 days Time of Disposition: 17:24
[2020-12-29 17:26] VITALS: BP 136/90; PULSE 82; RESP 18
== END 2020-12-29 17:40 | disposition home or self-care (01) ==
LOC: EC 16:42
DX: F41.0 Panic disorder [episodic paroxysmal anxiety] (principal); F17.200 Nicotine dependence, unspecified, uncomplicated; F25.9 Schizoaffective disorder, unspecified; F31.9 Bipolar disorder, unspecified; Z79.899 Other long term (current) drug therapy
CPT/HCPCS: 99283; 96372; J3360

== ENCOUNTER 2021-04-26 07:54 | Emergency (ER) | payer MEDICARE, OTHER ==
[2021-04-26 08:07] VITALS: BP 133/91; PULSE 93; RESP 18; TEMP 98.2
[2021-04-26] MEDS ORDERED: diazePAM 5 MG TAB PO STA (08:27)
--- NOTE | 2021-04-26 08:34 | ED ---
General Adult HPI - General Chief complaint: Psychiatric Symptoms Stated complaint: Anxiety Time Seen by Provider: 04/26/21 07:55 Source: patient, EMS, RN notes reviewed, old records reviewed Mode of arrival: EMS - History of Present Illness Initial comments: This is a 55-year-old male who presents emergency department stating that he has history of schizophrenia and occasional anxiety. Patient states that he is here because he was arguing with his friends and his family anxiety much wanted to come in and be given something for anxiety. Patient denies any suicidal homicid al ideations. Patient denies any physical complaints today. Patient denies chest pain difficult breathing shortest breath. Patient denies abdominal pain patient denies nausea vomiting diarrhea. Patient denies any recent fever chills or cough. - Related Data Home Medications Medication Instructions Recorded Confirmed OLANZapine [ZyPREXA] 15 mg PO HS 10/28/15 10/11/18 Niacin [Niacin ER] 1,000 mg PO HS 10/11/18 10/11/18 Ranitidine HCl [Zantac] 150 mg PO BID 10/11/18 10/11/18 Triamterene/Hydrochlorothiazid 1 cap PO DAILY 10/11/18 10/11/18 [Dyazide 37.5-25 Capsule] Previous Rx's Medication Instructions Recorded hydrOXYzine pamoate [Vistaril] 25 mg PO TID PRN #9 cap 10/28/20 Allergies Allergy/AdvReac Type Severity Reaction Status Date / Time No Known Allergies Allergy Verified 12/29/20 16:49 Review of Systems ROS Statement: Those systems with pertinent positive or pertinent negative responses have been documented in the HPI. ROS Other: All systems not noted in ROS Statement are negative. Past Medical History Past Medical History: No Reported History Additional Past Medical History / Comment(s): Schizoaffective d/o- on zyprexa .Hernia History of Any Multi-Drug Resistant Organisms: None Reported Past Surgical History: Hernia Repair Past Psychological History: Anxiety, Bipolar, Schizoaffective Disorder Smoking Status: Current every day smoker Past Alcohol Use History: Rare Past Drug Use History: None Reported General Exam - General Exam Comments Initial Comments: GENERAL: Patient is well-developed and well-nourished. Patient is nontoxic and well- hydrated and is in mild distress. ENT: Neck is soft and supple. No significant lymphadenopathy is noted. Oropharynx is clear. Moist mucous membranes. Neck has full range of motion without eliciting any pain. EYES: The sclera were anicteric and conjunctiva were pink and moist. Extraocular movements were intact and pupils were equal round and reactive to light. Eyelids were unremarkable. PULMONARY: Unlabored respirations. Good breath sounds bilaterally. No audible rales rhonchi or wheezing was noted. CARDIOVASCULAR: There is a regular rate and rhythm without any murmurs gallops or rubs. ABDOMEN: Soft and nontender with normal bowel sounds. SKIN: Skin is clear with no lesions or rashes and otherwise unremarkable. NEUROLOGIC: Patient is alert and oriented x3. Cranial nerves II through XII are grossly intact. Motor and sensory are also intact. Normal speech, volume and content. Symmetrical smile. MUSCULOSKELETAL: Normal extremities with adequate strength and full range of motion. LYMPHATICS: No significant lymphadenopathy is noted PSYCHIATRIC: Mildly anxious. Patient denies suicidal or homicidal ideations Course Vital Signs 04/26/21 08:00 Temperature 98.2 F Pulse Rate 93 Respiratory 18 Rate Blood Pressure 133/91 O2 Sat by Pulse 97 Oximetry Disposition Clinical Impression: Acute anxiety Disposition: HOME SELF-CARE Condition: Good Instructions (If sedation given, give patient instructions): Anxiety (ED) Is patient prescribed a controlled substance at d/c from ED?: No Referrals: [facility] [Primary Care Provider] - 1-2 days Time of Disposition: 08:34
== END 2021-04-26 09:00 | disposition home or self-care (01) ==
LOC: EC 07:54
DX: F41.9 Anxiety disorder, unspecified (principal); F17.210 Nicotine dependence, cigarettes, uncomplicated
CPT/HCPCS: 99283

== ENCOUNTER 2021-06-02 13:21 | Emergency (ER) | payer MEDICARE, OTHER ==
[2021-06-02 13:30] VITALS: BP 137/91; PULSE 111; RESP 20; TEMP 98.3
--- NOTE | 2021-06-02 13:50 | ED ---
General Adult HPI - General Chief complaint: Anxiety Stated complaint: panic attack Time Seen by Provider: 06/02/21 13:41 Source: patient, RN notes reviewed, old records reviewed Mode of arrival: ambulatory Limitations: no limitations - History of Present Illness Initial comments: 55-year-old male presents for evaluation of anxiety and request for medication refill. Patient was previously on Klonopin. He states he's been going through a lot of life stress including he had been evicted from his apartment and is forced to finding housing. He denies suicidal or homicidal ideation. Denies chest pain or dyspnea. He is requesting refill of his Klonopin prescription. - Related Data Home Medications Medication Instructions Recorded Confirmed OLANZapine [ZyPREXA] 15 mg PO HS 10/28/15 10/11/18 Niacin [Niacin ER] 1,000 mg PO HS 10/11/18 10/11/18 Ranitidine HCl [Zantac] 150 mg PO BID 10/11/18 10/11/18 Triamterene/Hydrochlorothiazid 1 cap PO DAILY 10/11/18 10/11/18 [Dyazide 37.5-25 Capsule] Previous Rx's Medication Instructions Recorded hydrOXYzine pamoate [Vistaril] 25 mg PO TID PRN #9 cap 10/28/20 clonazePAM [KlonoPIN] 0.5 mg PO BID PRN 3 Days #6 tablet 06/02/21 Allergies Allergy/AdvReac Type Severity Reaction Status Date / Time No Known Allergies Allergy Verified 06/02/21 13:30 Review of Systems ROS Statement: Those systems with pertinent positive or pertinent negative responses have been documented in the HPI. ROS Other: All systems not noted in ROS Statement are negative. Past Medical History Past Medical History: No Reported History Additional Past Medical History / Comment(s): Schizoaffective d/o- on zyprexa .Hernia History of Any Multi-Drug Resistant Organisms: None Reported Past Surgical History: Hernia Repair Past Psychological History: Anxiety, Bipolar, Schizoaffective Disorder Smoking Status: Current every day smoker Past Alcohol Use History: Rare Past Drug Use History: None Reported General Exam Limitations: no limitations General appearance: alert, anxious Head exam: Present: atraumatic, normocephalic Eye exam: Present: normal appearance, PERRL ENT exam: Present: normal exam Neck exam: Present: normal inspection. Absent: tenderness, meningismus Respiratory exam: Present: normal lung sounds bilaterally. Absent: respiratory distress, wheezes Cardiovascular Exam: Present: regular rate, normal rhythm GI/Abdominal exam: Present: soft. Absent: distended, tenderness, guarding Extremities exam: Present: normal inspection, normal capillary refill. Absent: pedal edema Neurological exam: Present: alert, oriented X3, CN II-XII intact. Absent: motor sensory deficit Psychiatric exam: Present: anxious. Absent: homicidal ideation, suicidal ideation Skin exam: Present: warm, dry, intact. Absent: cyanosis, diaphoretic Course Vital Signs 06/02/21 13:27 Temperature 98.3 F Pulse Rate 111 H Respiratory 20 Rate Blood Pressure 137/91 O2 Sat by Pulse 99 Oximetry - Reevaluation(s) Reevaluation #1: 06/02/21 13:47 Patient is informed that the emergency department does not refill anxiety medication. He will need to follow-up with his primary care physician. He is given 6 total tablets of Klonopin awaiting primary care evaluation. Medical Decision Making - Medical Decision Making 45-year-old male presenting with anxiety and need for medication refill. Given 6 total tablets of Klonopin should follow-up with primary care physician. Disposition Clinical Impression: Acute anxiety Disposition: HOME SELF-CARE Condition: Fair Instructions (If sedation given, give patient instructions): Generalized Anxiety Disorder (ED) Prescriptions: clonazePAM [KlonoPIN] 0.5 mg PO BID PRN 3 Days #6 tablet PRN Reason: Anxiety Is patient prescribed a controlled substance at d/c from ED?: No Referrals: [facility] [Primary Care Provider] - 1-2 days Time of Disposition: 13:49
== END 2021-06-02 14:02 | disposition home or self-care (01) ==
LOC: EC 13:21
DX: F41.9 Anxiety disorder, unspecified (principal); F17.220 Nicotine dependence, chewing tobacco, uncomplicated

== ENCOUNTER 2021-06-30 13:31 | Emergency (ER) | payer MEDICARE, OTHER ==
[2021-06-30 14:08] VITALS: BP 157/107; PULSE 77; RESP 16; TEMP 98.2
[2021-06-30] MEDS ORDERED: clonazePAM 0.5 MG TAB PO STA (14:16)
--- NOTE | 2021-06-30 14:31 | ED ---
General Adult HPI - General Chief complaint: Anxiety Stated complaint: Anxiety Time Seen by Provider: 06/30/21 14:05 Source: patient, RN notes reviewed, old records reviewed Mode of arrival: ambulatory Limitations: no limitations - History of Present Illness Initial comments: This is a 55-year-old male who presents to the emergency department stating that he has having an anxiety attack. Patient states she's having a fairly regular basis and he keeps coming to the emergency department for Klonopin. Patient states she's been having trouble getting a primary medical care doctor or psychiatrist. Patient denies any difficulty breathing shortness of breath or chest pain. Patient denies any fever chills or cough. Patient denies any abdominal pain patient denies nausea vomiting diarrhea. Patient denies lightheadedness dizziness or near syncopal episodes. Patient states this is classic anxiety attack is just super anxious and he doesn't have any more Klonopin. - Related Data Home Medications Medication Instructions Recorded Confirmed OLANZapine [ZyPREXA] 15 mg PO HS 10/28/15 10/11/18 Niacin [Niacin ER] 1,000 mg PO HS 10/11/18 10/11/18 Ranitidine HCl [Zantac] 150 mg PO BID 10/11/18 10/11/18 Triamterene/Hydrochlorothiazid 1 cap PO DAILY 10/11/18 10/11/18 [Dyazide 37.5-25 Capsule] Previous Rx's Medication Instructions Recorded hydrOXYzine pamoate [Vistaril] 25 mg PO TID PRN #9 cap 10/28/20 clonazePAM [KlonoPIN] 0.5 mg PO BID PRN 3 Days #6 tablet 06/02/21 Allergies Allergy/AdvReac Type Severity Reaction Status Date / Time No Known Allergies Allergy Verified 06/30/21 14:08 Review of Systems ROS Statement: Those systems with pertinent positive or pertinent negative responses have been documented in the HPI. ROS Other: All systems not noted in ROS Statement are negative. Past Medical History Past Medical History: No Reported History Additional Past Medical History / Comment(s): Schizoaffective d/o- on zyprexa .Hernia History of Any Multi-Drug Resistant Organisms: None Reported Past Surgical History: Hernia Repair Past Psychological History: Anxiety, Bipolar, Schizoaffective Disorder Smoking Status: Current every day smoker Past Alcohol Use History: Rare Past Drug Use History: None Reported General Exam - General Exam Comments Initial Comments: GENERAL: Patient is well-developed and well-nourished. Patient is nontoxic and well- hydrated and is in mild distress. ENT: Neck is soft and supple. No significant lymphadenopathy is noted. Oropharynx is clear. Moist mucous membranes. Neck has full range of motion without eliciting any pain. EYES: The sclera were anicteric and conjunctiva were pink and moist. Extraocular movements were intact and pupils were equal round and reactive to light. Eyelids were unremarkable. PULMONARY: Unlabored respirations. Good breath sounds bilaterally. No audible rales rhonchi or wheezing was noted. CARDIOVASCULAR: There is a regular rate and rhythm without any murmurs gallops or rubs. ABDOMEN: Soft and nontender with normal bowel sounds. SKIN: Skin is clear with no lesions or rashes and otherwise unremarkable. NEUROLOGIC: Patient is alert and oriented x3. Cranial nerves II through XII are grossly intact. Motor and sensory are also intact. Normal speech, volume and content. Symmetrical smile. MUSCULOSKELETAL: Normal extremities with adequate strength and full range of motion. LYMPHATICS: No significant lymphadenopathy is noted PSYCHIATRIC: Patient is anxious Limitations: no limitations Course Vital Signs 06/30/21 14:06 Temperature 98.2 F Pulse Rate 77 Respiratory 16 Rate Blood Pressure 157/107 O2 Sat by Pulse 97 Oximetry Medical Decision Making - Medical Decision Making Patient received Klonopin Disposition Clinical Impression: Acute anxiety Disposition: HOME SELF-CARE Instructions (If sedation given, give patient instructions): Generalized Anxiety Disorder (ED) Is patient prescribed a controlled substance at d/c from ED?: No Referrals: [facility] [Primary Care Provider] - 1-2 days Time of Disposition: 14:31
== END 2021-06-30 14:35 | disposition home or self-care (01) ==
LOC: EC 13:31
DX: F41.9 Anxiety disorder, unspecified (principal); F17.200 Nicotine dependence, unspecified, uncomplicated
CPT/HCPCS: 99283

== ENCOUNTER 2021-07-15 18:42 | Emergency (ER) | payer MEDICARE, OTHER ==
[2021-07-15 19:02] VITALS: BP 157/98; PULSE 69; RESP 16; TEMP 97
[2021-07-15] MEDS ORDERED: clonazePAM 0.5 MG TAB PO STA (21:47)
--- NOTE | 2021-07-15 21:50 | ED ---
General Adult HPI - General Chief complaint: Anxiety Stated complaint: Anxiety Time Seen by Provider: 07/15/21 21:23 Source: patient, RN notes reviewed, old records reviewed Mode of arrival: ambulatory Limitations: no limitations - History of Present Illness Initial comments: Patient is a 56-year-old male with past medical history remarkable for schizoa ffective disorder, anxiety who presents to the emergency department complaining of anxiety. Patient states it is been ongoing for multiple days. Ran out of his Klonopin last week. Has an appointment with [facility] in the morning. States he has been under many stressors at home including family issues. Is seeking a refill, short-term on his Klonopin. States he has been compliant with his other medications. Denies any suicidal or homicidal ideations, attempts, plans. Denies any visual or auditory hallucinations. He declines wanting to speak with psychiatry as he sees [facility] in the morning. His no other acute complaints at this time. Denies any alcohol or drug use. - Related Data Home Medications Medication Instructions Recorded Confirmed OLANZapine [ZyPREXA] 15 mg PO HS 10/28/15 10/11/18 Niacin [Niacin ER] 1,000 mg PO HS 10/11/18 10/11/18 Ranitidine HCl [Zantac] 150 mg PO BID 10/11/18 10/11/18 Triamterene/Hydrochlorothiazid 1 cap PO DAILY 10/11/18 10/11/18 [Dyazide 37.5-25 Capsule] Previous Rx's Medication Instructions Recorded hydrOXYzine pamoate [Vistaril] 25 mg PO TID PRN #9 cap 10/28/20 clonazePAM [KlonoPIN] 0.5 mg PO BID PRN 3 Days #6 tablet 06/02/21 clonazePAM [KlonoPIN] 0.5 mg PO TID PRN 1 Days #3 tablet 07/15/21 Allergies Allergy/AdvReac Type Severity Reaction Status Date / Time No Known Allergies Allergy Verified 07/15/21 18:57 Review of Systems ROS Statement: Those systems with pertinent positive or pertinent negative responses have been documented in the HPI. Review of Systems: CONST: Denies fever EYES: Denies blurry vision ENT: Denies nasal congestion C/V: Denies Chest pain RESP: Denies shortness of breath GI: Denies abdominal pain : Denies dysuria SKIN: Denies rash. MSK: Denies joint pain. NEURO: Denies headache PSYCH: Denies suicidal and homicidal ideations/plans/attempts. Denies visual or auditory hallucinations. He endorses anxiety ROS Other: All systems not noted in ROS Statement are negative. Past Medical History Past Medical History: No Reported History Additional Past Medical History / Comment(s): Schizoaffective d/o- on zyprexa .Hernia History of Any Multi-Drug Resistant Organisms: None Reported Past Surgical History: Hernia Repair Past Psychological History: Anxiety, Bipolar, Schizoaffective Disorder Smoking Status: Current every day smoker Past Alcohol Use History: None Reported Past Drug Use History: None Reported General Exam - General Exam Comments Initial Comments: General: Appears in no acute distress. HEAD: Normal with no signs of head trauma. EYES: PERRLA, EOMI, conjunctiva normal, no discharge. ENT: Hearing grossly intact, normal oropharynx. RESPIRATORY: Clear breath sounds bilaterally. No wheezes, rales, or rhonchi. C/V: Regular rate and rhythm. S1 and S2 auscultated, no edema, peripheral pulses 2+ and intact throughout ABD: Abd is soft, nontender, nondistended EXT: Normal range of motion, no obvious deformity SKIN: No rashes or lesions observed on exposed skin. NEURO: Alert and oriented x 4. Cranial nerves II-XII intact. No focal sensory or strength deficits. Limitations: no limitations Course Vital Signs 07/15/21 18:57 Temperature 97 F L Pulse Rate 69 Respiratory 16 Rate Blood Pressure 157/98 O2 Sat by Pulse 98 Oximetry Medical Decision Making - Medical Decision Making Based on the patient's presentation and physical exam, I do believe he is having acute anxiety. Review of his prescriptions, he is supposed to be on this medication, however last week. Does have follow-up with his psychiatry team tomorrow. I do not believe that he requires acute psychiatric evaluation as he is not a danger to himself or others. I do not believe that he requires any further laboratory studies or imaging. He will be given a dose of his Klonopin here as well as 3 tablets to make it until tomorrow afternoon as needed for anxiety. He was in agreement this plan. I will provide the patient with a prescription for 3 tablets of 0.5 mg Klonopin. I instructed the patient to follow up with their PCP in the next 3 days. . I explained that the patient should return to the emergency department if they experience any worsening symptoms. Strict return precautions were discussed with the patient. The patient expressed understanding of these instructions. I answered all questions that the patient had. The patient was discharged home in good condition with their prescriptions and follow up information. Disposition Clinical Impression: Acute anxiety Disposition: HOME SELF-CARE Condition: Good Instructions (If sedation given, give patient instructions): Generalized Anxiety Disorder (ED) Prescriptions: clonazePAM [KlonoPIN] 0.5 mg PO TID PRN 1 Days #3 tablet PRN Reason: Anxiety Is patient prescribed a controlled substance at d/c from ED?: Yes When asked, does pt state using other controlled substances?: Yes If prescribed controlled substance>3 days was MAPS reviewed?: Prescribed <3 Days Referrals: [facility] [Primary Care Provider] - 1-2 days
== END 2021-07-15 22:09 | disposition home or self-care (01) ==
LOC: EC 18:42
DX: F41.9 Anxiety disorder, unspecified (principal); F17.200 Nicotine dependence, unspecified, uncomplicated
CPT/HCPCS: 99283

== ENCOUNTER 2021-10-03 20:28 | Inpatient (IN) | payer MEDICARE, MEDICAID ==
[2021-10-04] MEDS ORDERED: MAGNESIUM HYDROXIDE 2,400 MG/10 ML CUP PO PRN (06:46)
[2021-10-04] MEDS ORDERED: HALOPERIDOL LACTATE 5 MG/ML 1 ML VIAL IM PRN (06:46)
[2021-10-04] MEDS ORDERED: MAG HYDROX/AL HYDROX/SIMETH 30 ML CUP PO PRN (06:46)
[2021-10-04] MEDS ORDERED: LORazepam 1 MG TAB PO PRN (06:46)
[2021-10-04] MEDS ORDERED: ACETAMINOPHEN TAB 325 MG TAB PO PRN (06:46)
[2021-10-04] MEDS ORDERED: LORazepam 2 MG/ML INJ IM PRN (06:49)
[2021-10-04] MEDS ORDERED: haloperidoL 5 MG TAB PO PRN (06:49)
[2021-10-04 07:06] VITALS: BP 152/103; PULSE 62; RESP 18; TEMP 97.1
[2021-10-04] MEDS ORDERED: NICOTINE 21MG/24HR PATCH TRANSDERM SCH (09:00)
[2021-10-04] MEDS ORDERED: diphenhydrAMINE 50 MG/ML 1 ML VIAL IM STA (13:54)
[2021-10-04] MEDS ORDERED: chlorproMAZINE 25 MG/ML 2 ML AMP IM STA (13:54)
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
--- NOTE | 2021-10-04 14:43 | P.DS ---
Providers Date of admission: 10/04/21 06:40 Expected date of discharge: 10/04/21 Attending physician: Laith Guardado MD Consults: 10/04/21 06:46 Consult Physician Routine Consulting Provider: Gabriel Burrell Consult Reason/Comments: h and p Do you want consulting provider notified?: Yes, Notify in am Primary care physician: [facility] Diagnosis(es) (1) Cocaine use disorder Current Visit: Yes Status: Acute Priority: High (2) Malingering Current Visit: Yes Status: Acute Priority: High Hospital Course: Admission HPI: Patient presented to the hospital on 10/04/2021, brought in to manage department by police after expressing concern that he is on the run from 2 "dope men living in his apartment that he ripped off." As previous report, the patient reported some suicidal ideation was subsequently admitted on to the psychiatric unit. Upon evaluation on the psychiatric unit, the patient vehemently denies any suicidal or homicidal ideation, intention, and/or plan. The patient reports no auditory or visual hallucinations. The patient denies any paranoia or other delusions. The patient expresses that he used crack cocaine approximately the day before this admission. He expresses currently at this time he is crack cocaine. The patient reports that he has been living with 2 drug dealers in his apartment and that he owes them money and he fears for his life regarding this. He states that he wishes to be in the psychiatric unit in order to "take some time off and lay low for a bit." The patient was informed that this is not an appropriate use of psychiatric resources. Patient states that he has a previous history of schizophrenia. The patient reports that he is on a regimen of Zyprexa. The patient reports a history of inpatient psychiatric admission but states it has been many years. Patient reports no outpatient follow-up. Patient denies any history of suicide attempts in the past. Hospital course: The patient was subsequently discharged from the psychiatric unit after initial psychiatric evaluation as he presented with no criteria for inpatient psychiatric hospitalization and was instead using the psychiatric unit for secondary gain to provide housing and fci from drug dealers he owes. He was offered resources for fci and also the opportunity to use a motel. Patient states he cannot afford a motel however the patient is able to spend $50 a day on crack cocaine. Mental status exam: General Appearance: Patient appears to be stated age is alert, directable, and attempts to cooperate. Patient appears to have fair hygiene and grooming. Behavior: Patient is seated without any agitated behavior. Speech: Patient's speech is fluent and nonpressured. Mood/Affect: Patient reports their mood is doing okay, affect is congruent and euthymic. Suicidality/Homicidality: Patient denies having any homicidal ideation intent or plan. Denies any suicidal ideations intent or plan Perceptions: Patient denies any visual hallucinations and denies any auditory hallucinations Though content/process: There is no evidence of any delusional thought content and thought process is linear and goal-directed. The patient actually appears to be quite resourceful. Memory and concentration: AOX3, grossly intact for the purposes of this session. Can spell "WORLD" backwards Judgment and insight: Fair Vital Signs Temp 97.1 F L 10/04/21 07:04 Pulse 62 10/04/21 07:04 Resp 18 10/04/21 07:04 BP 152/103 10/04/21 07:04 Pulse Ox 99 10/04/21 07:04 FiO2 Intake & Output 10/03/21 10/04/21 10/04/21 18:59 06:59 18:59 Weight 75.977 kg Laboratory Results Coronavirus (PCR) Not Detected (Not Detectd) 10/04/21 05:53 Allergies Allergy/AdvReac Type Severity Reaction Status Date / Time No Known Allergies Allergy Verified 10/03/21 21:43 Impression: Cocaine use disorder Malingering Plan: --The patient has no criteria for continued inpatient psychiatric hospitalization. He is here for secondary gain to avoid drug dealers owes. Furthermore, the patient is not presenting with any imminent risk of harm to self or others. He is denying any suicidal or homicidal ideation, intention, and/or plan. He is also not actively psychotic. The patient expresses that he really wants to smoke crack. As there is no criteria for continued inpatient psychiatric hospital stabilization, the patient is subsequently discharged. -The patient will remain elevated risk of self-harm due to his substance abuse. -Continue medications: Zyprexa 15 mg by mouth at bedtime for schizophrenia Vistaril for anxiety Medical medications for high blood pressure. -Patient was counseled on the need for medication compliance and appropriate follow-up at mental health and also primary care for medical issues. Patient verbalized understanding and agreed. -Social work to arrange for and conduct family meeting to ensure safety upon discharge and answer any questions/concerns. Social work also to arrange for patients follow up appointments with [facility] for psychiatric care along with follow up with primary care provider. -Patient counseled on abstaining from recreational drugs and marijuana and alcohol. Was informed/educated on the adverse effects on their physical and me ntal health. Patient was offered substance abuse treatment however declined at this time. -Patient was instructed to return to the hospital or seek immediate medical care if their psychiatric or medical symptoms do worsen or reoccur. Patient Condition at Discharge: Stable Plan - Discharge Summary Discharge Rx Participant: No New Discharge Prescriptions: Continue OLANZapine [ZyPREXA] 15 mg PO HS Triamterene/Hydrochlorothiazid [Dyazide 37.5-25 Capsule] 1 cap PO DAILY Ranitidine HCl [Zantac] 150 mg PO BID Niacin [Niacin ER] 1,000 mg PO HS hydrOXYzine pamoate [Vistaril] 25 mg PO TID PRN #9 cap PRN Reason: Anxiety Discontinued clonazePAM [KlonoPIN] 0.5 mg PO BID PRN 3 Days #6 tablet PRN Reason: Anxiety clonazePAM [KlonoPIN] 0.5 mg PO TID PRN 1 Days #3 tablet PRN Reason: Anxiety Discharge Medication List OLANZapine [ZyPREXA] 15 mg PO HS 10/28/15 [History] Niacin [Niacin ER] 1,000 mg PO HS 10/11/18 [History] Ranitidine HCl [Zantac] 150 mg PO BID 10/11/18 [History] Triamterene/Hydrochlorothiazid [Dyazide 37.5-25 Capsule] 1 cap PO DAILY 10/11/18 [History] hydrOXYzine pamoate [Vistaril] 25 mg PO TID PRN #9 cap 10/28/20 [Rx] Follow up Appointment(s)/Referral(s): [facility] [Outside] - 10/04/21 3:00 pm (3:00 today with Erika Chris at 3W ) [facility] [[facility] Care [facility]] - 1 Week Activity/Diet/Wound Care/Special Instructions: Avoid the use of street drugs and alcohol. Take all prescriptions as prescribed. When you are in need of refills on your medications, please contact your medical provider and/or outpatient psychiatrist to have this done. Please go to scheduled outpatient appointment for aftercare treatment. If symptoms return or become worse, call the crisis line at and/or go to the nearest emergency room for evaluation. Discharge Disposition: HOME SELF-CARE
--- NOTE | 2021-11-12 20:08 | ED ---
Psych HPI - General Chief Complaint: Psychiatric Symptoms Stated Complaint: Mental health eval Time Seen by Provider: 10/04/21 01:59 Source: patient Mode of arrival: ambulatory - History of Present Illness Initial Comments: This patient is a 56-year-old man who presents with complaint that he is having suicidal thoughts. The patient reports he has thoughts of shooting himself. States that he has been noncompliant with his psychiatric medications as well. MD Complaint: suicidal ideation -: days(s) Associated Psychiatric Symptoms: depression, suicidal ideation History of same: Yes Quality: getting worse Improves With: none Worsens With: none Context: recent drug abuse - Related Data Home Medications Medication Instructions Recorded Confirmed OLANZapine [ZyPREXA] 15 mg PO HS 10/28/15 10/11/18 Niacin [Niacin ER] 1,000 mg PO HS 10/11/18 10/11/18 Ranitidine HCl [Zantac] 150 mg PO BID 10/11/18 10/11/18 Triamterene/Hydrochlorothiazid 1 cap PO DAILY 10/11/18 10/11/18 [Dyazide 37.5-25 Capsule] Previous Rx's Medication Instructions Recorded hydrOXYzine pamoate [Vistaril] 25 mg PO TID PRN #9 cap 10/28/20 Allergies Allergy/AdvReac Type Severity Reaction Status Date / Time No Known Allergies Allergy Verified 10/03/21 21:43 Review of Systems ROS Statement: Those systems with pertinent positive or pertinent negative responses have been documented in the HPI. ROS Other: All systems not noted in ROS Statement are negative. Constitutional: Denies: fever, chills Respiratory: Denies: cough, dyspnea Cardiovascular: Denies: chest pain, palpitations Gastrointestinal: Denies: abdominal pain, vomiting, diarrhea Genitourinary: Denies: dysuria, hematuria Musculoskeletal: Denies: back pain Skin: Denies: rash Neurological: Denies: headache, weakness Psychiatric: Reports: depression, suicidal thoughts. Denies: auditory hallucinations, visual hallucinations, homicidal thoughts Past Medical History Past Medical History: No Reported History Additional Past Medical History / Comment(s): Schizoaffective d/o- on zyprexa .Hernia History of Any Multi-Drug Resistant Organisms: None Reported Past Surgical History: Hernia Repair Past Psychological History: Anxiety, Bipolar, Schizoaffective Disorder Smoking Status: Current every day smoker Past Alcohol Use History: None Reported Past Drug Use History: None Reported General Exam Limitations: no limitations General appearance: alert, in no apparent distress Head exam: Present: atraumatic, normocephalic Eye exam: Present: normal appearance Neck exam: Present: normal inspection Respiratory exam: Present: normal lung sounds bilaterally. Absent: respiratory distress, wheezes, rales, rhonchi, stridor Cardiovascular Exam: Present: regular rate, normal rhythm, normal heart sounds. Absent: systolic murmur, diastolic murmur, rubs, gallop GI/Abdominal exam: Present: soft. Absent: distended, tenderness, guarding, rebound, rigid Neurological exam: Present: alert Psychiatric exam: Present: depressed, suicidal ideation. Absent: agitated, flat affect, manic, homicidal ideation Skin exam: Present: warm, dry, intact, normal color. Absent: rash Course Vital Signs 10/03/21 21:43 Temperature 97.6 F Pulse Rate 82 Respiratory 16 Rate Blood Pressure 140/100 O2 Sat by Pulse 99 Oximetry Medical Decision Making - Lab Data Lab Results 10/04/21 Range/Units 05:53 Coronavirus (PCR) Not Detected (Not Detectd) Disposition Clinical Impression: Suicidal ideation, Mood disorder Disposition: TRANSFER TO PSYCH HOSP/UNIT Condition: Stable Is patient prescribed a controlled substance at d/c from ED?: No
== END 2021-10-04 16:26 | disposition home or self-care (01) | DRG 897 ==
LOC: EC 20:28 → 3MHU 10-04 06:40
PROVIDERS: ADMIT Psychiatry & Neurology Psychiatry; ATTEND Psychiatry & Neurology Psychiatry
DX: F14.90 Cocaine use, unspecified, uncomplicated (principal); Z76.5 Malingerer [conscious simulation]; F20.9 Schizophrenia, unspecified; F41.9 Anxiety disorder, unspecified; Z20.822 Contact with and (suspected) exposure to COVID-19; I10 Essential (primary) hypertension; Z72.0 Tobacco use; Z79.899 Other long term (current) drug therapy; F25.9 Schizoaffective disorder, unspecified; Z91.14 Patient's other noncompliance with medication regimen
CPT/HCPCS: 82075; 87635; 99285

== ENCOUNTER 2021-12-08 18:41 | Emergency (ER) | payer MEDICARE, MEDICAID ==
--- NOTE | 2021-12-08 18:52 | ED ---
General Adult HPI - General Chief complaint: Anxiety Stated complaint: Panic attack Time Seen by Provider: 12/08/21 18:51 Source: patient Mode of arrival: ambulatory Limitations: no limitations - History of Present Illness Initial comments: Patient presents to the ED (patient states that he got a ride here this evening) stating that he has felt anxious since last night, and stating that he feels as though he is having "panic attack". Patient denies taking any medication for his anxiety. Patient denies illicit drug use or medication abuse/overdose. Patient denies alcohol use. Patient is simply requesting a dose of Valium to help with his anxiety, and he states that he then wishes to go home. Patient does not want psychiatric evaluation. Patient denies suicidal ideations, homicidal ideations, hallucinations, any pain, fever or chills, headache, chest pain, dyspnea, palpitations, dizziness, abdominal pain, nausea or vomiting, or any other symptoms or complaints. Patient to get a ride home from the ED this evening. - Related Data Home Medications Medication Instructions Recorded Confirmed OLANZapine [ZyPREXA] 15 mg PO HS 10/28/15 10/11/18 Niacin [Niacin ER] 1,000 mg PO HS 10/11/18 10/11/18 Ranitidine HCl [Zantac] 150 mg PO BID 10/11/18 10/11/18 Triamterene/Hydrochlorothiazid 1 cap PO DAILY 10/11/18 10/11/18 [Dyazide 37.5-25 Capsule] Previous Rx's Medication Instructions Recorded hydrOXYzine pamoate [Vistaril] 25 mg PO TID PRN #9 cap 10/28/20 Allergies Allergy/AdvReac Type Severity Reaction Status Date / Time No Known Allergies Allergy Verified 12/08/21 18:49 Review of Systems ROS Statement: Those systems with pertinent positive or pertinent negative responses have been documented in the HPI. ROS Other: All systems not noted in ROS Statement are negative. Past Medical History Past Medical History: No Reported History Additional Past Medical History / Comment(s): Schizoaffective d/o- on zyprexa .Hernia History of Any Multi-Drug Resistant Organisms: None Reported Past Surgical History: Hernia Repair Past Psychological History: Anxiety, Bipolar, Schizoaffective Disorder Smoking Status: Current every day smoker Past Alcohol Use History: None Reported Past Drug Use History: None Reported General Exam Limitations: no limitations General appearance: alert, in no apparent distress Head exam: Present: atraumatic, normocephalic Eye exam: Present: normal appearance, PERRL, EOMI ENT exam: Present: mucous membranes moist Neck exam: Present: other (Trachea is in midline) Respiratory exam: Present: normal lung sounds bilaterally. Absent: respiratory distress, wheezes, rales, rhonchi, stridor Cardiovascular Exam: Present: regular rate, normal rhythm, normal heart sounds, other (Normal radial pulses bilaterally) GI/Abdominal exam: Present: soft. Absent: distended, tenderness, guarding Extremities exam: Absent: pedal edema Neurological exam: Present: alert, oriented X3. Absent: motor sensory deficit Psychiatric exam: Present: anxious Skin exam: Present: warm, dry, intact, normal color Course Vital Signs 12/08/21 18:47 Temperature 98 F Pulse Rate 78 Respiratory 18 Rate Blood Pressure 128/85 O2 Sat by Pulse 98 Oximetry Medical Decision Making - Medical Decision Making Patient is not suicidal or homicidal. Patient is A&O x 3. Patient was given a dose of oral Valium in the ED to help with his anxiety per his request. I do not suspect an emergent medical or psychiatric condition at this time. Will discharge patient home at this time with instructions to follow up closely with his primary care provider, as well as his psychiatrist. Disposition Clinical Impression: Acute anxiety Disposition: HOME SELF-CARE Condition: Stable Instructions (If sedation given, give patient instructions): Generalized Anxiety Disorder (ED) Additional Instructions: Return to the ER immediately should you develop thoughts of hurting yourself or others, hallucinations, feeling dizzy or faint, shortness of breath, any significant pain, or new or worsening symptoms. Follow up closely with your primary care provider, as well as your psychiatrist. Is patient prescribed a controlled substance at d/c from ED?: No Referrals: [facility] [Primary Care Provider] - 1-2 days Time of Disposition: 19:02
[2021-12-08] MEDS ORDERED: diazePAM 5 MG TAB PO STA (18:57)
[2021-12-08 19:19] VITALS: BP 126/82; PULSE 72; RESP 16; TEMP 97.8
== END 2021-12-08 19:17 | disposition home or self-care (01) ==
LOC: EC 18:41
DX: F41.9 Anxiety disorder, unspecified (principal); F31.9 Bipolar disorder, unspecified; F17.200 Nicotine dependence, unspecified, uncomplicated; Z79.899 Other long term (current) drug therapy
CPT/HCPCS: 99283

== ENCOUNTER 2022-02-04 13:10 | Emergency (ER) | payer MEDICARE, OTHER ==
[2022-02-04] MEDS ORDERED: LORazepam 1 MG TAB PO STA (19:52)
--- NOTE | 2022-02-04 20:20 | ED ---
Anxiety HPI - General Chief Complaint: Anxiety Stated Complaint: Anxiety Time Seen by Provider: 02/04/22 18:20 Source: patient Mode of arrival: ambulatory - History of Present Illness Initial Comments: Patient is a 56-year-old male with a past medical history of schizoaffective disorder and anxiety who presents to the emergency department with chief complaint anxiety. Patient states his anxiety has worsened the past couple days due to moving. He denies suicidal or homicidal ideation. Denies visual or auditory hallucination. Denies alcohol and drug use. Denies chest pain and shortness of breath. Patient follows with [facility] however states his appointments keep getting canceled. He seeks psychiatric evaluation today. - Related Data Home Medications: Home Medications Medication Instructions Recorded Confirmed Niacin [Niacin ER] 1,000 mg PO HS 10/11/18 02/04/22 Albuterol Inhaler [Ventolin Hfa 1 puff INHALATION RT-Q4H PRN 02/04/22 02/04/22 Inhaler] Naproxen [EC-Naprosyn] 500 mg PO BID 02/04/22 02/04/22 OLANZapine 5 mg PO DAILY PRN 02/04/22 02/04/22 OLANZapine 20 mg PO HS 02/04/22 02/04/22 cloNIDine HCL [Catapres] 0.1 mg PO BID 02/04/22 02/04/22 hydrOXYzine pamoate 50 mg PO TID 02/04/22 02/04/22 Allergies/Adverse Reactions: Allergies Allergy/AdvReac Type Severity Reaction Status Date / Time No Known Allergies Allergy Verified 02/04/22 13:21 Review of Systems ROS Statement: Those systems with pertinent positive or pertinent negative responses have been documented in the HPI. ROS Other: All systems not noted in ROS Statement are negative. Past Medical History Past Medical History: No Reported History Additional Past Medical History / Comment(s): Schizoaffective d/o- on zyprexa .Hernia History of Any Multi-Drug Resistant Organisms: None Reported Past Surgical History: Hernia Repair Past Psychological History: Anxiety, Bipolar, Schizoaffective Disorder Smoking Status: Current every day smoker Past Alcohol Use History: None Reported Past Drug Use History: None Reported General Exam Limitations: no limitations General appearance: alert, in no apparent distress, anxious Head exam: Present: atraumatic, normocephalic, normal inspection Respiratory exam: Present: normal lung sounds bilaterally. Absent: respiratory distress, wheezes, rales, rhonchi, stridor Cardiovascular Exam: Present: regular rate, normal rhythm, normal heart sounds. Absent: systolic murmur, diastolic murmur, rubs, gallop, clicks Neurological exam: Present: alert, oriented X3, CN II-XII intact Psychiatric exam: Present: normal affect, anxious Skin exam: Present: warm, dry, intact, normal color. Absent: rash Course Vital Signs 02/04/22 02/04/22 13:19 20:33 Temperature 97.5 F L 97.8 F Pulse Rate 86 64 Respiratory 20 18 Rate Blood Pressure 136/89 166/101 O2 Sat by Pulse 99 100 Oximetry Medical Decision Making - Medical Decision Making This is a 56-year-old presenting with anxiety. During initial evaluation patient did agree to emergency psychiatric services evaluation however upon reevaluation patient declined. Patient seeking Ativan prescription. I reviewed MAPS. Score is in the high 400s. Patient receives benzodiazepine prescription from several different providers. I'll not send patient home with prescription. Patient given 1 dose of Ativan in the emergency department. He is not driving home. Patient is not danger to himself or others therefore psychiatric evaluation is not required. He does not require any further laboratory studies or imaging. He is encouraged to follow up with [facility]. Dr. Morales is my attending. Disposition Clinical Impression: Acute anxiety Disposition: HOME SELF-CARE Condition: Good Instructions (If sedation given, give patient instructions): Anxiety (ED), Panic Attack (ED) Additional Instructions: Follow up with [facility] in one to 2 days. Return to the emergency department if you experience new, concerning, or worsening symptoms. Is patient prescribed a controlled substance at d/c from ED?: No [facility]errals: [facility] [Primary Care [facility]] - 1-2 days Time of Disposition: 20:20
[2022-02-04 20:34] VITALS: BP 166/101; PULSE 64; RESP 18; TEMP 97.8
== END 2022-02-04 20:34 | disposition home or self-care (01) ==
LOC: EC 13:10
DX: F41.9 Anxiety disorder, unspecified (principal); F17.200 Nicotine dependence, unspecified, uncomplicated; F31.9 Bipolar disorder, unspecified
CPT/HCPCS: 99283